=== PATIENT | male | born 1975 | race Caucasian/White ===

== ENCOUNTER 2017-10-27 18:37 | Emergency (ER) | payer BC ==
[~2017-10-27] VITALS: Ht 172.7 cm; Wt 117.9 kg
[2017-10-27] MEDS ORDERED: MEDROLPACK PO (19:32)
[2017-10-27] MEDS ORDERED: KETO10TA2 PO (19:32)
== END 2017-10-27 19:45 | disposition home or self-care (01) ==
LOC: ER 18:37
DX: M25.531 Pain in right wrist (principal)

== ENCOUNTER 2018-06-13 11:27 | Emergency (ER) | payer OTHER ==
[~2018-06-13] VITALS: Ht 182.9 cm; Wt 122.5 kg
[~2018-06-13 11:27] MED LIST: KETO10TA2 PO; MEDROLPACK PO
== END 2018-06-13 15:18 | disposition home or self-care (01) ==
LOC: ER 11:27
DX: R07.89 Other chest pain (principal)

== ENCOUNTER 2020-04-02 15:34 | Emergency (ER) | payer OTHER ==
[~2020-04-02] VITALS: Ht 170.2 cm; Wt 133.8 kg
== END 2020-04-02 18:54 | disposition home or self-care (01) ==
LOC: ER 15:34
DX: R00.2 Palpitations (principal); I49.3 Ventricular premature depolarization; F41.8 Other specified anxiety disorders